=== PATIENT | female | born 1965 | race Caucasian/White ===

== ENCOUNTER → 2017-12-25 13:47 | Outpatient (CLI) | payer BC, SELFPAY ==
[2017-12-25 16:40] LABS: T4 Free Direct 0.87 ng/dL (0.76-1.46); Thyroid Stim Hormone (TSH) 6.37 uIU/mL (0.358-3.74)
== END ==
PROVIDERS: Family Provider Family Medicine; PCP Family Medicine; Visit Provider Family Medicine
DX: E03.9 Hypothyroidism, unspecified (principal)
CPT/HCPCS: 36415; 84439; 84443

== ENCOUNTER → 2018-03-02 13:44 | Outpatient (CLI) | payer BC, SELFPAY ==
[2018-03-02 16:04] LABS: T4 Free Direct 1.47 ng/dL (0.76-1.46)
== END ==
PROVIDERS: Family Provider Family Medicine; PCP Family Medicine; Visit Provider Family Medicine
DX: E03.9 Hypothyroidism, unspecified (principal)
CPT/HCPCS: 36415; 84439; 84443

== ENCOUNTER → 2018-09-21 15:43 | Outpatient (CLI) | payer BC, SELFPAY ==
[2018-09-21 17:50] LABS: T4 Free Direct 0.99 ng/dL (0.76-1.46); Thyroid Stim Hormone (TSH) 3.98 uIU/mL (0.358-3.74)
== END ==
PROVIDERS: Family Provider Family Medicine; PCP Family Medicine; Visit Provider Family Medicine
DX: E03.9 Hypothyroidism, unspecified (principal)
CPT/HCPCS: 36415; 84439; 84443

== ENCOUNTER → 2019-03-20 | Outpatient (CLI) | payer BC, SELFPAY ==
[2019-03-20 12:34] LABS: Absolute Lymphocyte Count 2.58 X10^3/ul (0.83-4.51); Absolute Neutrophil Count 2.4 X10^3/uL (2.0-7.7); Basophil# 0.01 X10^3/uL; Basophil% 0.2 % (0-1); Eosinophils% 3.6 % (0-5); Hematocrit 42.4 % (37-47); Hemoglobin 13.9 g/dl (12.0-15.0); Lymphocyte # 2.58 X10^3/ul (4.0); Lymphocyte % 46.3 % (19-41); Mean Corp Hgb Conc 32.8 g/gl (32-36); Mean Corpuscular Hgb 28.6 pg (27.0-32.0); Mean Corpuscular Volume 87.2 fL (81-99); Mean Platelet Vol. 10.8 fl (6.2-12.0); Monocyte# 0.43 X10^3/uL; Monocyte% 7.7 % (0-10); Neutrophil # 2.35 X10^3/uL (2.7-7.7); Neutrophil % 42.2 % (47-70); Platelet Count 264 K/mm3 (150-450); RBC Distribution Width CV 13.9 % (11.6-14.6); Red Blood Count 4.86 M/mm3 (4.2-5.4); White Blood Count 5.6 K/mm3 (4.4-11.0)
[2019-03-20 12:36] LABS: POSITIVE COUNT NO; POSITIVE DIFFERENTIAL NO; POSITIVE MORPHOLOGY NO
[2019-03-20 12:46] LABS: Vitamin D,25 Hydroxy 18.7 ng/mL (29.95-100.01)
[2019-03-20 12:56] LABS: ALB/GLOB Ratio 1.2 RATIO (0.9-2.4); AST(SGOT) 16 U/L (15-37); Alanine Aminotransfer ALT/SGPT 23 U/L (13-56); Albumin, Serum 4.1 g/dL (3.2-5.0); Alkaline Phosphatase 56 U/L (45-117); Anion Gap 3 (5-15); BUN 17 mg/dL (7-18); BUN/Creat Ratio 18.5 RATIO (10-20); Chloride 107 mmol/L (98-107); Creatinine, Serum 0.92 mg/dL (0.55-1.02); EST Glomerular Filtration Rate 68 mL/min (>60); Est Glom Filt Rate - Afr Amer 82 mL/min (>60); Globulin 3.3 g/dL (2.2-4.2); Glucose 94 mg/dL (74-106); Potassium 4.1 mmol/L (3.5-5.1); Protein, Total 7.4 g/dL (6.4-8.2); Sodium Level 142 mmol/L (136-145); T4 Free Direct 0.96 ng/dL (0.76-1.46); Thyroid Stim Hormone (TSH) 6.62 uIU/mL (0.358-3.74)
== END | disposition home or self-care (01) ==
LOC: BFHLAB 08:22
PROVIDERS: Family Provider Family Medicine; PCP Family Medicine; Visit Provider Family Medicine
DX: Q60.0 Renal agenesis, unilateral (principal); E03.9 Hypothyroidism, unspecified; E78.5 Hyperlipidemia, unspecified; R53.83 Other fatigue
CPT/HCPCS: 36415; 80053; 82306; 84439; 84443; 84481; 85025

== ENCOUNTER 2021-06-24 12:13 | Emergency (ER) | payer BC, SELFPAY ==
[2021-06-24 12:13] VITALS: BP 139/83; PULSE 90; RESP 22; TEMP 36.6; O2SAT 97; BMI 28.3
--- NOTE | 2021-06-24 12:15 | RAD_ITS ---
STUDY: X-RAY - LEFT ANKLE REASON FOR EXAM: Female, 56 years old. FALL -- IN WAITING ROOM TECHNIQUE: 3 view(s) of the ankle. COMPARISON: None. FINDINGS: Nondisplaced vertical fracture involving the lateral aspect of the distal tibial metaphysis extending to the articular surface. Nondisplaced oblique fracture of the lateral malleolus. The ankle mortise is asymmetrical. Normal visualized talus and calcaneus. The visualized subtalar, talonavicular, calcaneocuboid and tarsal articulations are normal. Soft tissue swelling. RAD/Ankle min 3 Views IMPRESSION: Nondisplaced oblique fracture of the lateral malleolus as well as vertical fracture of the lateral portion of the distal tibial metaphysis with extension to the articular surface. Disruption of the ankle mortise. Soft tissue swelling. Electronically Signed: Jimmy Templeton MD at 12:41 EDT , Service support ,
--- NOTE | 2021-06-24 13:24 | EDS_ITS ---
HPI History of Present Illness Chief Complaint: Lower Extremity Injury Informant: patient Narrative Narrative: Patient is a 56-year-old previously healthy female who presents to the emergency department for left ankle injury. She states that she was walking off the porch whenever she stepped onto the wet grass and slipped. She is not sure which direction her ankle twisted but she has had significant pain since. She has not been able to bear any weight on the foot. She denies hitting her head or losing consciousness. She denies any other injury. She does not take anything for this. Any movement makes her pain worse. No loss of sensation. PFSH PFSH Home Medications ascorbic acid (vitamin C) 500 mg capsule mg PO 04/20/21 [History Last Taken Unknown] ascorbic acid 100 mg-elderberry fruit 50 mg chewable tablet tab PO 04/20/21 [History Last Taken Unknown] zinc 50 mg tablet 50 mg PO DAILY 04/20/21 [History Last Taken Unknown] hydrocodone-acetaminophen 1 tab PO Q6H PRN PRN 3 Days #12 tablet 06/24/21 [Rx Last Taken Unknown] Allergy/AdvReac Type Severity Reaction Status Date / Time No Known Allergies Allergy Verified 06/24/21 12:15 Family History (Updated 04/20/21 @ 10:49 by Sandrine Rukcer RN) Other Heart disease Surgical History H/O tubal ligation History of kidney removal Social History Smoking Status: Former smoker ROS ROS ED Constitutional Constitutional ED: Denies chills or fever(s) Eyes Eyes: Denies change in vision ENT ENT ED: Denies epistaxis or rhinorrhea Cardiovascular Cardiovascular: Denies chest pain Respiratory/Chest Respiratory/Chest: Denies cough or dyspnea Gastrointestinal Gastrointestinal: Denies abdominal pain, nausea or vomiting Musculoskeletal Musculoskeletal: Reports arthralgias; Denies back pain or neck pain Integumentary Denies rash Neurologic Neurologic: Denies dizziness, headache(s) or weakness EXAM Physical Exam Const Vital Signs: 06/24/21 12:13 Temperature 97.9 F Temperature Source Temporal Pulse Rate 90 Respiratory Rate 22 H Blood Pressure 139/83 H Blood Pressure Mean 101 Pulse Ox 97 Oxygen Delivery Method Room Air Positive well nourished and well developed General Appearance ED: well developed and NAD HEENT Reports normocephalic, head/scalp atraumatic and moist mucous membranes Eyes PERRL and EOMs intact bilaterally Neck supple General: Negative for tenderness Chest Wall inspection of chest normal Resp normal respiratory effort and clear to auscultation bilaterally Auscultation: Negative for rales, rhonchi or wheezes Cardio regular rate, regular rhythm and no murmurs GI normal to inspection, nondistended, normoactive bowel sounds and non-tender Palpation: soft; Negative for guarding or rebound tenderness present Extremity Extremity Narrative: Significant swelling around left ankle. No obvious deformity appreciated. There is diffuse tenderness. 2+ DP pulse. Sensation intact. Brisk capillary refill. Neuro no sensory deficits noted Sensorium / Orientation: alert Motor Exam: strength 5/5 throughout Psych mental status grossly normal Skin no rashes or lesions noted MDM MDM MDM Narrative Medical decision making narrative: Patient presents the ED for injury to left ankle. X-ray was obtained and did confirm a ankle fracture. The fibula has a nondisplaced break as well as the tibial metaphysis. She has remained neurovascular intact. Patient was splinted with Ortho-Glass in a posterior and ankle stirrup. She remains neurovascularly intact. She is given podiatry referral for close follow-up. She is given a prescription for Mccomb for symptomatic treatment. She is to remain nonweightbearing. She is given crutches return precautions reviewed with her. All questions were answered. Radiography Diagnostic Testing: Radiology Impression Ankle X-Ray 06/24/21 12:15 IMPRESSION: Nondisplaced oblique fracture of the lateral malleolus as well as vertical fracture of the lateral portion of the distal tibial metaphysis with extension to the articular surface. Disruption of the ankle mortise. Soft tissue swelling. Electronically Signed: Jimmy Templeton MD at 12:41 EDT , Service support , Discharge Plan Triage Chief Complaint: Lower Extremity Injury ED Provider: Zac Lewis Dx/Rx/DC Orders Clinical Impression: Ankle fracture, left Instructions: ED Ankle Fracture Prescriptions: New hydrocodone-acetaminophen 5-325 mg tablet 1 tab PO Q6H PRN PRN (Reason: Pain) 3 Days Qty: 12 RF: 0 No Action zinc 50 mg tablet 50 mg PO DAILY RF: 0 ascorbic acid-elderberry fruit [Airborne (elderberry)] 100-50 mg tablet,chewable PO RF: 0 ascorbic acid (vitamin C) 500 mg capsule PO RF: 0 Primary Care Provider: Skyler Rollins Referrals: Lela Becerra DPM [STAFF PHYSICIAN] - 2 Days Skyler Rollins MD [Primary Care Provider] - Disposition Disposition: Home, Self Care Discharge Date/Time: 06/24/21 14:05
[2021-06-24] MEDS: HYDROcodone Bitartrate/Apap 5/325 Tablet PO (13:25)
== END 2021-06-24 14:05 | disposition home or self-care (01) ==
LOC: ED 13:41
PROVIDERS: Emergency Provider Emergency Medicine; PCP Family Medicine
DX: S82.892A Other fracture of left lower leg, initial encounter for closed fracture (principal); X50.1XXA Overexertion from prolonged static or awkward postures, initial encounter; Y93.01 Activity, walking, marching and hiking; Z87.891 Personal history of nicotine dependence
CPT/HCPCS: 73610; 99284

== ENCOUNTER → 2021-06-29 10:01 | Outpatient (CLI) | payer BC, SELFPAY ==
--- NOTE | 2021-06-29 10:04 | CT_ITS ---
STUDY: CT LEFT ANKLE WITHOUT CONTRAST REASON FOR EXAM: Evaluate left ankle fracture. TECHNIQUE: Thin section transaxial imaging of the ankle was obtained, with sagittal and coronal reconstructed images. Individualized dose optimization techniques were used for this CT. COMPARISON: Radiographs 06/24/2021. FINDINGS: There is a mildly comminuted fracture of the distal fibular metaphysis and diaphysis (sagittal reconstructions 24-29) with the distal fragment displaced posteriorly approximately 0.57 cm. There is a posterior malleolar fracture without an articular step-off of 0.2 cm (sagittal reconstructions 11-21). Normal talar dome. There is a small plantar calcaneal enthesophyte. Otherwise, unremarkable talus, calcaneus, navicular and cuboid tarsal bones. Normal subtalar, talonavicular and calcaneocuboid articulations. Normal navicular-cuneiform, cuneiform tarsal bones and intercuneiform articulations. Normal tarsometatarsal articulations and visualized metatarsi. There is soft tissue swelling. CT/Extremity Lower without Contra IMPRESSION: Fractures of the distal fibula and posterior malleolus. Electronically Signed: Bruno Ortiz MD at 11:07 EDT Tel , Service support ,
== END ==
PROVIDERS: PCP Family Medicine; Referring Provider Orthopaedic Surgery; Visit Provider Orthopaedic Surgery
DX: S82.62XA Displaced fracture of lateral malleolus of left fibula, initial encounter for closed fracture (principal)
CPT/HCPCS: 73700

== ENCOUNTER → 2021-07-02 10:19 | Outpatient (CLI) | payer BC, SELFPAY ==
--- NOTE | 2021-07-02 10:17 | EKG12_ITS ---
Test Reason : PRE OP Blood Pressure : / mmHG Vent. Rate : 067 BPM Atrial Rate : 067 BPM P-R Int : 158 ms QRS Dur : 076 ms QT Int : 412 ms P-R-T Axes : 070 047 067 degrees QTc Int : 435 ms Normal sinus rhythm Normal ECG Confirmed by JOHN WELSH, CARLENE ([id number]), editorial specialist ABE FARIA ([id number]) on 07/05/2021 9:51:57 AM Referred By: Nathaniel Grant Confirmed By:CARLENE LOPEZ MD
[2021-07-02 12:31] LABS: Mean Corp Hgb Conc 31.8 g/dL (32-36); Mean Corpuscular Hgb 28.7 pg (27.0-32.0); Mean Corpuscular Volume 90.2 fL (81-99); Mean Platelet Vol. 10.5 fl (6.2-12.0); Platelet Count 331 K/mm3 (150-450); RBC Distribution Width CV 13.1 % (11.6-14.6); RBC Distribution Width SD 42.8 fl (35.1-43.9); Red Blood Count 4.88 M/mm3 (4.2-5.4); White Blood Count 6.6 K/mm3 (4.4-11.0)
[2021-07-02 12:41] LABS: Anion Gap 7 (5-15); BUN 17 mg/dL (7-18); BUN/Creat Ratio 18.2 RATIO (10-20); Calcium,Total 9.6 mg/dL (8.5-10.1); Chloride 105 mmol/L (98-107); Creatinine, Serum 0.94 mg/dL (0.55-1.02); EST Glomerular Filtration Rate 66 mL/min (>60); Est Glom Filt Rate - Afr Amer 80 mL/min (>60); Glucose 95 mg/dL (74-106); Potassium 4.2 mmol/L (3.5-5.1); Sodium Level 139 mmol/L (136-145)
== END ==
PROVIDERS: PCP Family Medicine; Referring Provider Student in an Organized Health Care Education/Training Program; Visit Provider Student in an Organized Health Care Education/Training Program
DX: Z01.818 Encounter for other preprocedural examination (principal); Z11.59 Encounter for screening for other viral diseases
CPT/HCPCS: 36415; 80048; 85027; 87635; 93005; C9803; U0005; U0003